=== PATIENT | female | born 1975 | race Caucasian/White ===

== ENCOUNTER 2022-05-20 15:58 | Emergency (ER) | payer BC, OTHER ==
[~2022-05-20] VITALS: Ht 152.4 cm; Wt 64.0 kg
[2022-05-20] MEDS ORDERED: GABA-529 PO (16:06)
[2022-05-20] MEDS ORDERED: ACETAMINOPHEN 325MG TABLET PO ONE (16:15)
[2022-05-20 16:34] LABS: BASOPHILS % 0.8 % (0.0-2.0); EOSINOPHILS % 2.8 % (0.0-5.0); HEMATOCRIT. 39.2 % (36.0-48.0); HEMOGLOBIN. 13.2 g/dL (12.0-16.0); LYMPHOCYTES % 43.3 % (20.0-50.0); MEAN CORPUSCULAR HEMOGLOBIN 30.2 pg (28.0-32.0); MEAN CORPUSCULAR VOLUME 89.5 fL (81.0-99.0); MEAN PLATELET VOLUME 9.3 fl (7.4-10.4); NEUTROPHILS % 46.1 % (40.0-76.0); PLATELET 270 x1000/uL (130-400); RED BLOOD CELL COUNT 4.38 mill/uL (4.2-5.4); RED CELL DISTRIBUTION WIDTH 13.9 % (11.6-14.6)
[2022-05-20 16:38] LABS: CHLORIDE 104 mEq/L (98-107)
[2022-05-20 16:42] LABS: *AMPHETAMINES SCREEN URINE NEGATIVE (NEGATIVE); *BARBITURATES SCREEN URINE NEGATIVE (NEGATIVE); *BENZODIAZEPINES SCREEN URINE NEGATIVE (NEGATIVE); *COCAINE SCREEN URINE NEGATIVE (NEGATIVE); CANNABINOID URINE SCREEN NEGATIVE (NEGATIVE); METHADONE URINE SCREEN NEGATIVE (NEGATIVE); OPIATES URINE SCREEN NEGATIVE (NEGATIVE); PHENCYCLIDINE URINE SCREEN NEGATIVE (NEGATIVE)
[2022-05-20 16:49] LABS: ETHANOL BLOOD < 10 mg/dL
[2022-05-20 16:54] LABS: HCG SCREEN NEGATIVE
[2022-05-20 18:02] VITALS: BP 133/73
[2022-05-20] MEDS ORDERED: ACET-2708 MT (19:42)
== END 2022-05-20 20:28 | disposition home or self-care (01) ==
LOC: ER 15:58
DX: R07.89 Other chest pain (principal); J45.909 Unspecified asthma, uncomplicated; Z13.9 Encounter for screening, unspecified
CPT/HCPCS: 36415; 71045; 80053; 80305; 80320; 81025; 83880; 84484; 84703; 85025; 93005; 99285; G0480